=== PATIENT | female | born 1950 | race Hispanic/Latino ===

== ENCOUNTER 2017-03-14 20:40 | Inpatient (IN) | payer MEDICARE ==
[~2017-03-14] VITALS: Ht 154.9 cm; Wt 59.0 kg
[~2017-03-14 20:40] MED LIST: DEXILANT60 MG PO; FELBAMATE600 MG PO; FORTEO2.4 ML SC; FORTEO2.4 ML SQ; K DUR10 MEQ PO; KEPPRA XR500 MG PO; LEVETIRACETAM500 MG PO; LORAZEPAM1 MG PO; OMEPRAZOLE40 MG PO; PENICILLIN PO; POTASSIUM CHLO10 ME1 PO; PREDNISONE10 MG PO; PRISTIQ ER50 MG PO; SUCRALFATE1 GM PO; TOPIRAMATE100 MG PO; VITAMIN D250000 UNIT PO
[2017-03-14 22:27] LABS: CLARITY,URINE SL CLOUDY (CLEAR); COLOR,URINE YELLOW (YELLOW)
[2017-03-14 22:28] LABS: BILIRUBIN,URINE NEGATIVE (NEGATIVE); KETONES,URINE NEGATIVE (NEGATIVE); LEUKOCYTE ESTERASE ,URINE TRACE (NEGATIVE); NITRITE,URINE NEGATIVE (NEGATIVE); PROTEIN,URINE DIPSTICK NEGATIVE (NEGATIVE); URINE UROBILINOGEN 0.2 mg/dL (0.2 - 1)
[2017-03-14 22:28] LABS: BASOPHILS # (AUTO) 0.1 (0.0-0.1); BASOPHILS % 0.8 % (0.0-1.0); EOSINOPHILS # (AUTO) 0.1 (0.0-0.4); EOSINOPHILS % 1.4 % (0.0-6.0); HEMATOCRIT 43.9 % (34.2-44.1); HEMOGLOBIN 14.6 g/dL (12.0-16.0); LYMPHOCYTES # (AUTO) 2.6 (1.0-3.2); LYMPHOCYTES % 41.5 % (18.0-39.1); MEAN CORPUSCULAR HEMOGLOBIN 33.6 pg (28-32); MEAN CORPUSCULAR HGB CONC 33.3 g/dL (31-35); MEAN CORPUSCULAR VOLUME 101.2 fL (81-99); MONOCYTES # (AUTO) 0.7 (0.2-0.8); MONOCYTES % 10.7 % (4.4-11.3); NEUTROPHILS # (AUTO) 2.9 (2.1-6.9); NEUTROPHILS % 45.3 % (38.7-80.0); PLATELET COUNT 211 x10e3/uL (140-360); RED BLOOD COUNT 4.34 x10e6/uL (3.6-5.1); RED CELL DISTRIBUTION WIDTH 12.8 % (11.7-14.4)
[2017-03-14 22:40] LABS: EPITHELIAL CELLS,URINE MODERATE /LPF; TRANSITIONAL EPI CELLS,URINE MODERATE; WBC,URINE (MAN) 0-5 /HPF (0-5)
[2017-03-14 22:44] LABS: ALANINE AMINOTRANSFERASE 21 IU/L (0-55); ALBUMIN 4.4 g/dL (3.5-5.0); ALBUMIN/GLOBULIN RATIO 1.3 (0.8-2.0); ALKALINE PHOSPHATASE 102 IU/L (40-150); ANION GAP 15.2 mmol/L (8-16); BLOOD UREA NITROGEN 10 mg/dL (7-26); BUN/CREATININE RATIO 13 (6-25); CALCIUM 9.5 mg/dL (8.4-10.2); CARBON DIOXIDE 24 mmol/L (22-29); CHLORIDE 106 mmol/L (98-107); CREATININE, SERUM 0.77 mg/dL (0.57-1.11); EST GLOMERULAR FILTRATION RATE > 60 ML/MIN (60-); GLUCOSE 110 mg/dL (74-118); POTASSIUM 4.2 mmol/L (3.5-5.1); SODIUM 141 mmol/L (136-145)
[2017-03-14] MEDS ORDERED: ACETAMINOPHEN 325 MG TAB PO PRN (23:45)
[2017-03-14] MEDS ORDERED: MEROPENEM 1GM 100 ML IV SCH (23:45)
[2017-03-14] MEDS ORDERED: ONDANSETRON HCL INJ 2 MG/ML VIAL IV PRN (23:45)
[2017-03-15] VITALS (9 sets, daily range): BP systolic 100–143; BP diastolic 58–83
[2017-03-15] MEDS ORDERED: PRISTIQ ER50 MG PO (00:28)
[2017-03-15] MEDS: SODIUM CHLORIDE 0.9% 1000ML 1,000 ML IV SCH ×3 (01:39→17:00)
[2017-03-15] MEDS ORDERED: MEROPENEM 1 GM VIAL ONE (01:52)
[2017-03-15] MEDS: MEROPENEM 1 GM VIAL IV SCH ×3 (06:19→22:26)
[2017-03-15 07:31] LABS: BASOPHILS % 0.5 % (0.0-1.0); EOSINOPHILS # (AUTO) 0.1 (0.0-0.4); EOSINOPHILS % 2.9 % (0.0-6.0); HEMATOCRIT 35.3 % (34.2-44.1); HEMOGLOBIN 11.7 g/dL (12.0-16.0); LYMPHOCYTES % 47.3 % (18.0-39.1); MEAN CORPUSCULAR HEMOGLOBIN 33.5 pg (28-32); MEAN CORPUSCULAR HGB CONC 33.1 g/dL (31-35); MEAN CORPUSCULAR VOLUME 101.1 fL (81-99); MONOCYTES # (AUTO) 0.5 (0.2-0.8); MONOCYTES % 11.1 % (4.4-11.3); NEUTROPHILS # (AUTO) 1.6 (2.1-6.9); PLATELET COUNT 178 x10e3/uL (140-360); RED BLOOD COUNT 3.49 x10e6/uL (3.6-5.1)
[2017-03-15 07:47] LABS: ALANINE AMINOTRANSFERASE 16 IU/L (0-55); ALBUMIN 3.1 g/dL (3.5-5.0); ALBUMIN/GLOBULIN RATIO 1.3 (0.8-2.0); ALKALINE PHOSPHATASE 71 IU/L (40-150); ANION GAP 11.9 mmol/L (8-16); BLOOD UREA NITROGEN 8 mg/dL (7-26); BUN/CREATININE RATIO 13 (6-25); CALCIUM 8.2 mg/dL (8.4-10.2); CARBON DIOXIDE 24 mmol/L (22-29); CHLORIDE 111 mmol/L (98-107); CREATININE, SERUM 0.64 mg/dL (0.57-1.11); EST GLOMERULAR FILTRATION RATE > 60 ML/MIN (60-); GLUCOSE 84 mg/dL (74-118); POTASSIUM 3.9 mmol/L (3.5-5.1); SODIUM 143 mmol/L (136-145)
[2017-03-15] MEDS: FELBAMATE 600 MG PO SCH (17:00)
[2017-03-15] MEDS ORDERED: LORAZEPAM 1 MG TAB PO PRN (17:00)
[2017-03-15] MEDS: FAMOTIDINE 20 MG TAB PO SCH (17:45)
--- NOTE | 2017-03-15 19:31 | History and Physical ---
PRIMARY CARE PROVIDER: Dr. Bhavya Kaiser. CHIEF COMPLAINT: Multidrug resistant UTI. HISTORY OF PRESENT ILLNESS: Ms. Arreola is a 66-year-old lady who was sent from her PCP office with multidrug resistant UTI based on cultures that were done in his office. The patient does have a history of recurrent UTIs and has been under the care of Dr. Galicia and Dr. Huerta. She is admitted now electively to start IV antibiotics for her multidrug resistant UTI that has failed outpatient therapy with p.o. meds. REVIEW OF SYSTEMS: Denies fever, chills or weight loss. Denies sinus congestion or sore throat. Denies chest pain or palpitation. She denies shortness of breath, wheezing or cough. She denies abdominal pain, nausea, vomiting or melena. She does have some dysuria. Denies flank pain. She denies rash or pruritus. Denies bleeding or bruising. She denies headache, vertigo or loss of consciousness. She denies depression, agitation, homicidal or suicidal ideation. PAST MEDICAL HISTORY: Significant for long-standing idiopathic seizure disorder since childhood. She is on Keppra and Felbamate for seizures. She is on Pristiq ER for depression and lorazepam as needed for anxiety. She does have a history of cholecystectomy many years ago and she has had a left hip open reduction and internal fixation for hip fracture about 5 years ago and she has had a ventral hernia repair. ALLERGIES: SHE HAS A STATED ALLERGY TO TRAZODONE, ACYCLOVIR, IODINE, SULFA DRUGS AND CEPHALOSPORINS. FAMILY HISTORY: Unremarkable. SOCIAL HISTORY: The patient is . Speaks only Maltese. She does not smoke, drink or use illegal drugs. She is generally independently functioning. PHYSICAL EXAM: PSYCHIATRIC: She is alert and oriented times 3 with normal mood and affect. CONSTITUTIONAL: She has a normal body habitus. Is in no acute distress. VITAL SIGNS: Blood pressure 112/61. Pulse 74 and regular. Respiratory rate 16. O2 sat 99% on room air. Temperature 96.6. HEENT: Head is atraumatic and her eyes are anicteric with clear conjunctivae. Ears and nares are without erythema or discharge. Oropharynx is clear. NECK: Is supple. No mass or thyromegaly. LYMPHATIC SYSTEM: She has no palpable cervical, axillary or inguinal adenopathy. CARDIOVASCULAR: Heart has a regular rate and rhythm without murmur or extra heart sounds. She has no carotid bruit. She has no peripheral edema. Palpable dorsal pedal pulses. RESPIRATORY: Clear to auscultation and percussion with normal respiratory effort. GASTROINTESTINAL: Abdomen is soft without organomegaly, masses or tenderness. Normal bowel sounds present. CUTANEOUS: Her skin is warm and dry to touch with no rash or skin breakdown. MUSCULOSKELETAL: Joints are normal alignment without erythema or swelling. Has no calf tenderness. NEUROLOGIC: Exam is nonfocal with intact cranial nerves and no motor or sensory deficits. DIAGNOSTIC STUDIES: Her UA has 0 to 5 white cells, looks like a partially treated urine. CBC shows a white count of 4.14 with a normal differential. Hemoglobin 11.7, hematocrit 35.3 that is macrocytic. Platelet count is 178,000. Her chemistry profile shows normal electrolytes with a CO2 24. Creatinine 0.64. BUN 8. Calcium 8.2. Glucose 84. Transaminases, bilirubin and alkaline phos are normal. IMPRESSION AND PLAN 1. Recurrent multidrug resistant urinary tract infection. Patient has been started on IV meropenem empirically. Will likely need to continue this with home IV, infectious disease and urology have been consulted since they have been following the patient. Will also try a trial of estrogen vaginal cream to see if atrophic vaginitis might be the cause of her recurrent urinary tract infections. 2. Seizure disorder. Will continue her home meds. 3. For prophylaxis she will be using SCDs for DVT prophylaxis and Pepcid for GI prophylaxis. Job#: [id number]
[2017-03-15] MEDS: LEVETIRACETAM 500 MG PO SCH (22:39)
[2017-03-15] MEDS: ESTROGENS CONJUGATED VAGINAL CR 45 GM TUBE PV SCH (22:55)
--- NOTE | 2017-03-15 23:52 | Consultation ---
DATE OF CONSULTATION: REASON FOR CONSULTATION: UTI, multidrug resistant, failing medical treatment. HISTORY OF PRESENT ILLNESS: This patient who is well known to me, a 66-year-old female, who has been having recurrent UTIs. The patient has been having UTI on and off for the last 2 years. I first met her 2 years ago when she was septic with multidrug-resistant pathogen. She was treated with IV meropenem for 2 weeks, and since then, she has been having recurrent UTIs. On another occasion back in December, I had to put her back on IV meropenem with improvement. She has seen Dr. Diomedes Galicia and had extensive workup and apparently there is nothing else could be done from urological point of view. We have tried several courses of oral antibiotic as suppressive treatment including Cipro, cefazolin, and Ceftin without really good luck. She called me complaining of urgency, frequency, feeling feverish, suprapubic discomfort, minimum blood noticed after ; so, I told her to come to the hospital because I have done a recent urine culture and it was multidrug-resistant E coli. The patient came to the emergency room where she was admitted and started on meropenem. Patient is currently feeling slightly better. She said that since she started the IV antibiotic she is feeling much better. PAST MEDICAL HISTORY: She has history of seizure disorder, although we sent her to neurologist and she has been on Keppra and felbamate for seizure. She also is on Pristiq ER for depression. She is on lorazepam for anxiety. Patient has had multiple other complaints and she has seen several physicians as an outpatient. She is Sinhala speaking but her son who is very caring and he is aware of the situation. Past medical history: As above. PAST SURGICAL HISTORY: Cholecystectomy. ALLERGIES: TRAZODONE AND ACYCLOVIR. SOCIAL HISTORY: There is no smoking, drug abuse, or alcohol abuse. FAMILY HISTORY: Hypertension. REVIEW OF SYSTEMS CONSTITUTIONAL: Feeling feverish, feeling bad for a few days. Generalized aches and pains. NEURO: There is no seizure activity recently. : There is urgency, there is frequency, there is suprapubic discomfort and pain. JOINTS: She has aches and pain all over. MUSCLE: She is feeling fatigued. PULMONARY: There is no cough or shortness of breath. LABORATORY DATA: White count is 4.14, hemoglobin 11.73. Sodium 143, potassium 3.9, and creatinine 0.64. Urine test showed she had trace leukocyte esterase with moderate epithelial cells. PHYSICAL EXAMINATION GENERAL: She is currently alert, oriented, does not seem to be in acute distress. VITALS: Stable, afebrile. HEENT: She is not icteric. NECK: Supple. CHEST: Clear. HEART: S1 and S2, no murmur. ABDOMEN: Soft. Bowel sounds present. EXTREMITIES: No edema. She has some suprapubic discomfort. IMPRESSIONS 1. Cystitis with multidrug-resistant pathogen. We put her on meropenem. Await urine culture and sensitivity. Await her lab. She is already feeling better with the above antibiotic. I had a very long discussion with her son today about suppressive treatment. It seems she has failed multiple oral antibiotics. I may want to try IV meropenem once a week and see if that will keep her from being re-admitted for urinary tract infection, pyelonephritis. I have sent her to see to evaluate her for obstetrics/gynecology if we can use vaginal cream, Premarin, or something like that and she is going to see him. 2. Seizure disorder. 3. Anxiety and depression. Thank you for asking me to see this patient. Job#: [id number]
[2017-03-16] VITALS (9 sets, daily range): BP systolic 111–152; BP diastolic 59–80
[2017-03-16] MEDS: MEROPENEM 1 GM VIAL IV SCH ×3 (06:06→23:26)
[2017-03-16 07:04] LABS: BASOPHILS % 1.2 % (0.0-1.0); EOSINOPHILS # (AUTO) 0.1 (0.0-0.4); EOSINOPHILS % 3.9 % (0.0-6.0); HEMATOCRIT 35.2 % (34.2-44.1); HEMOGLOBIN 11.4 g/dL (12.0-16.0); LYMPHOCYTES # (AUTO) 1.5 (1.0-3.2); MEAN CORPUSCULAR HEMOGLOBIN 33.1 pg (28-32); MEAN CORPUSCULAR HGB CONC 32.4 g/dL (31-35); MEAN CORPUSCULAR VOLUME 102.3 fL (81-99); MONOCYTES # (AUTO) 0.5 (0.2-0.8); MONOCYTES % 13.4 % (4.4-11.3); NEUTROPHILS # (AUTO) 1.3 (2.1-6.9); NEUTROPHILS % 38.2 % (38.7-80.0); PLATELET COUNT 161 x10e3/uL (140-360); RED BLOOD COUNT 3.44 x10e6/uL (3.6-5.1)
[2017-03-16 07:27] LABS: % IRON SATURATION 55 % (15-50); BLOOD UREA NITROGEN 10 mg/dL (7-26); BUN/CREATININE RATIO 15 (6-25); CALCIUM 7.9 mg/dL (8.4-10.2); CARBON DIOXIDE 23 mmol/L (22-29); CHLORIDE 115 mmol/L (98-107); CREATININE, SERUM 0.66 mg/dL (0.57-1.11); EST GLOMERULAR FILTRATION RATE > 60 ML/MIN (60-); GLUCOSE 82 mg/dL (74-118); IRON 119 ug/dL (50-170); MAGNESIUM 1.9 MG/DL (1.3-2.1); SODIUM 142 mmol/L (136-145); TOTAL IRON BINDING CAPACITY 216 ug/dL (261-478); TRANSFERRIN 154 mg/dL (180-382)
[2017-03-16 07:48] LABS: FREE T4 (FREE THYROXINE) 0.89 ng/dL (0.8-1.8); THYROID STIMULATING HORMONE 0.813 uIU/mL (0.350-4.940)
[2017-03-16] MEDS: FAMOTIDINE 20 MG TAB PO SCH ×2 (08:30→16:30)
[2017-03-16] MEDS: FELBAMATE 600 MG PO SCH ×2 (09:00→17:00)
[2017-03-16] MEDS: DESVENLAFAXINE SUCCINATE 50 MG TAB.SR.24H PO SCH (09:00)
[2017-03-16] MEDS: LEVETIRACETAM 500 MG PO SCH ×4 (09:00→21:00)
--- NOTE | 2017-03-16 12:52 | Diagnostic Imaging Report ---
PROCEDURE: CT ABDOMEN AND PELVIS WITHOUT CONTRAST TECHNIQUE: The abdomen and pelvis were scanned utilizing a multidetector helical scanner from the diaphragm to the lesser trochanter without administration of contrast medium No IV contrast was administered per protocol/per physician request). Coronal and sagittal multiplanar reformations were obtained. COMPARISON: [facility], CT, CT ABDOMEN/PELVIS , 10/14/2016, 14:50. INDICATIONS: CALCULUS OF KIDNEY FINDINGS: ABSENCE OF INTRAVENOUS CONTRAST DECREASES SENSITIVITY FOR DETECTION OF FOCAL LESIONS AND VASCULAR PATHOLOGY. LOWER THORAX: Normal. HEPATOBILIARY: Redemonstration of ill-defined low attenuation in the posterior aspect of segment 7 of the liver with associated atrophy, unchanged. ons. No biliary ductal dilatation. Status post cholecystectomy. Mild dilatation of the normal duct likely reflecting reserve or fracture. SPLEEN: No splenomegaly. PANCREAS: No focal masses or ductal dilatation. ADRENALS: No adrenal nodules. KIDNEYS/URETERS: No hydronephrosis, stones, or solid mass lesions. PELVIC ORGANS/BLADDER: Multiple phleboliths scattered throughout the pelvis. PERITONEUM / RETROPERITONEUM: No free air or fluid. LYMPH NODES: No lymphadenopathy. VESSELS: Mild atherosclerotic ossifications without aneurysmal dilatation. GI TRACT: No distention or wall thickening. A few scattered colonic diverticula without diverticulitis. BONES AND SOFT TISSUES: Loss of height of the L1 vertebral body with superior endplate Schmorl node, unchanged. Generalized osteopenia. Tiny fat containing umbilical hernia. IMPRESSION: 1. No evidence of urolithiasis. Ryne Ambriz M.D. Dictated by: Ryne Ambriz M.D. on 03/16/2017 at 13:01 Electronically approved by: Ryne Ambriz M.D. on 03/16/2017 at 13:01
[2017-03-16] MEDS: ESTROGENS CONJUGATED VAGINAL CR 45 GM TUBE PV SCH (23:26)
[2017-03-17] VITALS: BP 138/66
[2017-03-17 04:00] VITALS: BP 151/66
[2017-03-17] MEDS: MEROPENEM 1 GM VIAL IV SCH (06:21)
[2017-03-17 07:07] LABS: EOSINOPHILS # (AUTO) 0.1 (0.0-0.4); EOSINOPHILS % 3.2 % (0.0-6.0); HEMATOCRIT 37.4 % (34.2-44.1); HEMOGLOBIN 12.2 g/dL (12.0-16.0); LYMPHOCYTES % 49.4 % (18.0-39.1); MEAN CORPUSCULAR HGB CONC 32.6 g/dL (31-35); MEAN CORPUSCULAR VOLUME 101.1 fL (81-99); MONOCYTES # (AUTO) 0.5 (0.2-0.8); MONOCYTES % 12.2 % (4.4-11.3); NEUTROPHILS # (AUTO) 1.4 (2.1-6.9); PLATELET COUNT 186 x10e3/uL (140-360); RED CELL DISTRIBUTION WIDTH 12.9 % (11.7-14.4)
[2017-03-17 07:27] LABS: ANION GAP 10.2 mmol/L (8-16); BLOOD UREA NITROGEN 11 mg/dL (7-26); BUN/CREATININE RATIO 16 (6-25); CALCIUM 8.7 mg/dL (8.4-10.2); CARBON DIOXIDE 23 mmol/L (22-29); CHLORIDE 112 mmol/L (98-107); CREATININE, SERUM 0.69 mg/dL (0.57-1.11); EST GLOMERULAR FILTRATION RATE > 60 ML/MIN (60-); GLUCOSE 82 mg/dL (74-118); POTASSIUM 4.2 mmol/L (3.5-5.1); SODIUM 141 mmol/L (136-145)
[2017-03-17 07:51] VITALS: BP 118/60
[2017-03-17] MEDS: FAMOTIDINE 20 MG TAB PO SCH (08:30)
[2017-03-17] MEDS: LEVETIRACETAM 500 MG PO SCH (09:00)
[2017-03-17] MEDS: FELBAMATE 600 MG PO SCH (09:00)
[2017-03-17] MEDS: DESVENLAFAXINE SUCCINATE 50 MG TAB.SR.24H PO SCH (09:00)
[2017-03-17 11:19] VITALS: BP 119/70
[2017-03-17] MEDS ORDERED: KEFLEX500 MG PO (11:47)
--- NOTE | 2017-03-17 19:18 | Discharge Summary ---
ADMISSION DIAGNOSES 1. Recurrent drug resistant urinary tract infection. 2. Seizure disorder. 3. Anxiety. 4. Depression. DISCHARGE DIAGNOSES 1. Recurrent drug resistant urinary tract infection. 2. Seizure disorder. 3. Anxiety. 4. Depression. HISTORY: The patient has a history of longstanding idiopathic seizure disorder on Keppra and felbamate for seizures, depression, anxiety. PAST SURGICAL HISTORY: Cholecystectomy, left hip ORIF and ventral hernia repair. HOSPITAL COURSE: A 66-year-old female was sent from her PCP with multidrug resistant UTI based on cultures done in the office. The patient has a history of recurrent UTIs and is under the care of Dr. Galicia and Dr. Huerta. She is admitted electively to start IV antibiotics as she has had failed attempt at p.o. meds outpatient. Upon admission, the patient was started on IV Merrem. ID and urology have been consulted. The patient was also started on Estrogen vaginal cream to see if the atrophic vaginitis might be the cause of her recurrent UTIs. The patient was started on home medicines for depression, anxiety and seizures. On admission, CT of the abdomen was done which showed no evidence of urolithiasis. Urine culture was done which was negative. Sodium on discharge was 141, potassium 4.2, creatinine 0.69, WBC of 4.01, hemoglobin 12.2, hematocrit 37.4. Per infectious disease request, the patient was sent home on Keflex on Monday, Monday and Monday x2 weeks and will follow up with them for 2 weeks. The patient has an allergy to cephalosporins and sulfa. Infectious disease aware, which is why he prescribed those antibiotics Monday, Monday and Monday. The patient will follow up in 2 weeks with ID and primary care if needed. On discharge, the patient denies dysuria, hematuria or flank pain. Dictated by: Criss Woods NP JAYDEN MOORE MD Job#: [id number]
== END 2017-03-17 14:08 | disposition home or self-care (01) | DRG 690 ==
LOC: ER 20:40 → ERHOLD 23:53 → MED/SURG3 03-15 00:34
PROVIDERS: ADMIT Internal Medicine; ATTEND Internal Medicine
DX: N30.90 Cystitis, unspecified without hematuria (principal); I10 Essential (primary) hypertension; Z16.24 Resistance to multiple antibiotics; G40.909 Epilepsy, unspecified, not intractable, without status epilepticus; F41.9 Anxiety disorder, unspecified; F32.9 Major depressive disorder, single episode, unspecified; N95.2 Postmenopausal atrophic vaginitis; Z88.2 Allergy status to sulfonamides; B96.20 Unspecified Escherichia coli [E. coli] as the cause of diseases classified elsewhere; M81.0 Age-related osteoporosis without current pathological fracture; D64.9 Anemia, unspecified
CPT/HCPCS: 36415; 74176; 80048; 80053; 81001; 82607; 82746; 83540; 83735; 83880; 84439; 84443; 84466; 85025; 87086; 99283; J2185; J7030

== ENCOUNTER 2017-08-14 20:21 | Observation (INO) | payer MEDICARE ==
[~2017-08-14] VITALS: Ht 154.9 cm; Wt 59.0 kg
[~2017-08-14 20:21] MED LIST changes: +KEFLEX500 MG PO
[2017-08-14] MEDS ORDERED: ACETAMINOPHEN 325 MG TAB PO ONE (20:45)
[2017-08-14] MEDS ORDERED: DIATRIZOATE MEGL/DIATRIZOA SOD 30 ML BTL PO ONE (20:48)
[2017-08-14 21:06] LABS: BASOPHILS % 0.6 % (0.0-1.0); EOSINOPHILS % 0.2 % (0.0-6.0); HEMATOCRIT 45.9 % (34.2-44.1); HEMOGLOBIN 15.7 g/dL (12.0-16.0); LYMPHOCYTES # (AUTO) 1.9 (1.0-3.2); LYMPHOCYTES % 29.7 % (18.0-39.1); MEAN CORPUSCULAR HGB CONC 34.2 g/dL (31-35); MEAN CORPUSCULAR VOLUME 99.4 fL (81-99); MONOCYTES # (AUTO) 0.6 (0.2-0.8); MONOCYTES % 9.7 % (4.4-11.3); NEUTROPHILS # (AUTO) 3.8 (2.1-6.9); NEUTROPHILS % 59.5 % (38.7-80.0); PLATELET COUNT 253 x10e3/uL (140-360); RED BLOOD COUNT 4.62 x10e6/uL (3.6-5.1); RED CELL DISTRIBUTION WIDTH 12.7 % (11.7-14.4)
[2017-08-14 21:23] LABS: ALANINE AMINOTRANSFERASE 21 IU/L (0-55); ALBUMIN 4.8 g/dL (3.5-5.0); ALBUMIN/GLOBULIN RATIO 1.3 (0.8-2.0); ALKALINE PHOSPHATASE 103 IU/L (40-150); AMYLASE 217 U/L (25-125); ANION GAP 16.2 mmol/L (8-16); BLOOD UREA NITROGEN 11 mg/dL (7-26); BUN/CREATININE RATIO 13 (6-25); CARBON DIOXIDE 21 mmol/L (22-29); CHLORIDE 106 mmol/L (98-107); CREATINE KINASE 35 IU/L (29-168); CREATININE, SERUM 0.85 mg/dL (0.57-1.11); EST GLOMERULAR FILTRATION RATE > 60 ML/MIN (60-); GLUCOSE 132 mg/dL (74-118); LIPASE 242 U/L (8-78); POTASSIUM 4.2 mmol/L (3.5-5.1); SODIUM 139 mmol/L (136-145)
[2017-08-14 22:13] LABS: CLARITY,URINE CLEAR (CLEAR); COLOR,URINE YELLOW (YELLOW); LEUKOCYTE ESTERASE ,URINE NEGATIVE (NEGATIVE); NITRITE,URINE NEGATIVE (NEGATIVE)
[2017-08-14 22:14] LABS: BILIRUBIN,URINE NEGATIVE (NEGATIVE); KETONES,URINE NEGATIVE (NEGATIVE); PROTEIN,URINE DIPSTICK 1+ (NEGATIVE); URINE UROBILINOGEN 0.2 mg/dL (0.2 - 1)
[2017-08-14 22:20] LABS: EPITHELIAL CELLS,URINE MODERATE /LPF; MUCUS,URINE MODERATE (RARE); WBC,URINE (MAN) 0-5 /HPF (0-5)
[2017-08-15] VITALS (8 sets, daily range): BP systolic 126–162; BP diastolic 58–78
--- NOTE | 2017-08-15 00:06 | Diagnostic Imaging Report ---
EXAM: CT Abdomen and Pelvis WITHOUT contrast INDICATION: Abdominal pain COMPARISON: None. TECHNIQUE: Abdomen and pelvis were scanned utilizing a multidetector helical scanner from the lung base to the pubic symphysis without administration of IV contrast. Absence of intravenous contrast decreases sensitivity for detection of focal lesions and vascular pathology. Coronal and sagittal reformations were obtained. Routine protocol was performed. IV CONTRAST: None. ORAL CONTRAST: Gastrografin RADIATION DOSE: Total DLP: 268.54 mGy*cm Estimated effective dose: (DLP x 0.015 x size factor) mSv COMPLICATIONS: None FINDINGS: LINES and TUBES: None. LOWER THORAX: Unremarkable HEPATOBILIARY: No focal hepatic lesions. No biliary ductal dilation. GALLBLADDER: There are cholecystectomy clips. SPLEEN: No splenomegaly. PANCREAS: No focal masses or ductal dilatation. ADRENALS: No adrenal nodules KIDNEYS/URETERS: No hydronephrosis. No cystic or solid mass lesions. No stones. GI TRACT: No abnormal distention, wall thickening, or evidence of bowel obstruction. Appendix is normal. PELVIC ORGANS/BLADDER: Unremarkable. LYMPH NODES: No lymphadenopathy. VESSELS: There is mild atherosclerotic disease in the aorta and major arterial branches. PERITONEUM / RETROPERITONEUM: No free air or fluid. Incidentally noted, area of peritoneal calcification in the left lower quadrant compatible with prior omental fat necrosis on series 2, image 55 and in the right hemipelvis on series 2, image 61. BONES: There are degenerative changes in the lumbar spine. Posttraumatic changes of the left femur related to prior ORIF SOFT TISSUES: Unremarkable. IMPRESSION: 1. No acute intra-abdominal or pelvic abnormality. 2. 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 Cliff Ratliff M.D. on 08/15/2017 12:02 AM
--- NOTE | 2017-08-15 00:06 | Diagnostic Imaging Report ---
EXAMINATION: CHEST SINGLE (PORTABLE) INDICATION: Chest discomfort. COMPARISON: April 20, 2016 FINDINGS: TUBES and LINES: None. LUNGS: Lungs are not well inflated. There are bibasilar atelectasis. There is no evidence of pneumonia or pulmonary edema. PLEURA: No pleural effusion or pneumothorax. HEART AND MEDIASTINUM: The cardiomediastinal silhouette is unremarkable. BONES AND SOFT TISSUES: No acute osseous lesion. Soft tissues are unremarkable. UPPER ABDOMEN: No free air under the diaphragm. There are cholecystectomy clips. IMPRESSION: No acute thoracic abnormality. Signed by: Dr. Cliff Ratliff M.D. on 08/15/2017 12:03 AM
[2017-08-15] MEDS ORDERED: ONDANSETRON HCL INJ 2 MG/ML VIAL IV PRN (00:15)
[2017-08-15] MEDS ORDERED: HYDROMORPHONE 1MG/1ML INJ IV PRN (00:15)
[2017-08-15] MEDS ORDERED: SODIUM CHLORIDE 0.9% 1000ML 1,000 ML ONE (00:28)
[2017-08-15] MEDS: SODIUM CHLORIDE 0.9% 1000ML 1,000 ML IV SCH ×4 (00:36→20:29)
[2017-08-15] MEDS: LORAZEPAM 1 MG TAB PO PRN ×2 (02:32→22:13)
[2017-08-15 06:31] LABS: BASOPHILS % 0.7 % (0.0-1.0); EOSINOPHILS # (AUTO) 0.1 (0.0-0.4); EOSINOPHILS % 1.3 % (0.0-6.0); HEMATOCRIT 36.4 % (34.2-44.1); HEMOGLOBIN 12.5 g/dL (12.0-16.0); LYMPHOCYTES # (AUTO) 1.8 (1.0-3.2); LYMPHOCYTES % 40.9 % (18.0-39.1); MEAN CORPUSCULAR HEMOGLOBIN 34.3 pg (28-32); MEAN CORPUSCULAR HGB CONC 34.3 g/dL (31-35); MONOCYTES # (AUTO) 0.5 (0.2-0.8); MONOCYTES % 10.3 % (4.4-11.3); NEUTROPHILS # (AUTO) 2.1 (2.1-6.9); NEUTROPHILS % 46.4 % (38.7-80.0); PLATELET COUNT 194 x10e3/uL (140-360); RED BLOOD COUNT 3.64 x10e6/uL (3.6-5.1); RED CELL DISTRIBUTION WIDTH 12.7 % (11.7-14.4)
[2017-08-15 06:59] LABS: ANION GAP 9.8 mmol/L (8-16); BLOOD UREA NITROGEN 7 mg/dL (7-26); BUN/CREATININE RATIO 11 (6-25); CALCIUM 8.3 mg/dL (8.4-10.2); CARBON DIOXIDE 23 mmol/L (22-29); CHLORIDE 110 mmol/L (98-107); CHOL/HDL RATIO 2.3 (3.0-3.6); CHOLESTEROL 175 MD/DL (0-199); CREATININE, SERUM 0.63 mg/dL (0.57-1.11); EST GLOMERULAR FILTRATION RATE > 60 ML/MIN (60-); GLUCOSE 96 mg/dL (74-118); HDL CHOLESTEROL 75 MG/DL (40-60); LDL CHOLESTEROL 90 MG/DL (60-130); LIPASE 382 U/L (8-78); MAGNESIUM 2.1 MG/DL (1.3-2.1); POTASSIUM 3.8 mmol/L (3.5-5.1); SODIUM 139 mmol/L (136-145); TRIGLYCERIDES 52 MG/DL (0-149)
[2017-08-15] MEDS ORDERED: ACETAMINOPHEN 325 MG TAB PO PRN (07:15)
[2017-08-15] MEDS ORDERED: ALBUTEROL/IPRATROPIUM 3 ML NEB NEB PRN (07:15)
[2017-08-15] MEDS ORDERED: HYDRALAZINE HCL 20 MG/ML VIAL IV PRN (07:15)
[2017-08-15 07:21] LABS: FREE T4 (FREE THYROXINE) 0.87 ng/dL (0.9-1.8)
[2017-08-15] MEDS ORDERED: LEVETIRACETAM 500 MG PO SCH (09:00)
[2017-08-15] MEDS ORDERED: FELBAMATE 600 MG PO SCH (09:00)
[2017-08-15] MEDS: FELBAMATE 600 MG PO SCH ×2 (09:36→17:10)
[2017-08-15] MEDS: DESVENLAFAXINE SUCCINATE 50 MG TAB.SR.24H PO SCH (09:36)
[2017-08-15] MEDS: LEVETIRACETAM 500 MG TAB PO SCH ×4 (09:36→20:29)
[2017-08-15] MEDS: FAMOTIDINE 20 MG TAB PO SCH ×2 (09:36→16:05)
--- NOTE | 2017-08-15 09:59 | Diagnostic Imaging Report ---
EXAMINATION: Head CT HISTORY: Dizziness, pancreatitis COMPARISON: None. TECHNIQUE: Multidetector axial images were obtained without contrast from the foramen magnum to the vertex . The images were reconstructed using brain and bone algorithms. Thin section brain images were reformatted into coronal and sagittal planes. Intravenous contrast: None. Motion/streaking artifact limits the evaluation of the skull base and posterior cranial fossa. FINDINGS: Parenchyma: 1. No abnormal densities. 2. No mass or hemorrhage. No CT evidence of acute territorial vascular insult. Extra-axial spaces:No abnormal density. No extra-axial fluid collections Brain volume: Normal for age. Ventricles: No hydrocephalus or displacement. Arteries: No density suggestive of thrombus. Dural sinuses: No abnormal density. Extra-axial spaces: No abnormal density. Foramen magnum: No mass, Chiari malformation, or basilar invagination. Sella: No obvious mass. Paranasal/mastoid sinuses: Imaged portions unremarkable. Skull/Scalp: No lytic or blastic lesions. No fractures. IMPRESSION: No intracranial abnormalities. Signed by: Dr. Nury Gonzalez M.D. on 08/15/2017 9:55 AM
--- NOTE | 2017-08-15 10:05 | Diagnostic Imaging Report ---
PROCEDURE:ABDOMINAL ULTRASOUND COMPARISON:CT abdomen and pelvis without contrast 08/14/2017. INDICATIONS:Pancreatitis FINDINGS: Liver: 14.3 cm in length in the right midclavicular line. Normal hepatic parenchymal echogenicity. No focal mass. Main portal vein: 1 cm in caliber. Hepatopedal flow. Gallbladder: Surgically removed. Common Bile Duct: 1.5 cm in caliber, likely related to reservoir effect in the setting of prior cholecystectomy. No echogenic filling defect. Right kidney: 9.3 cm in length. No solid or cystic mass, echogenic calculi, or hydronephrosis. Normal renal cortical echogenicity. Left kidney: 8.6 cm in length. No solid or cystic mass, echogenic calculi, or hydronephrosis. Normal renal cortical echogenicity. Spleen: Poorly visualized. Pancreas: The visualized portions of the pancreas are normal. Inferior vena cava: Patent. Aorta: Non-aneurysmal. Ascites: None. CONCLUSION: No acute sonographic abnormality. Suboptimal visualization of the pancreas; however, the pancreas is normal in appearance on comparison CT abdomen and pelvis 08/14/2017. Status post cholecystectomy with associated dilatation of the common bile duct. Dictated by: Jr Skaggs M.D. on 08/15/2017 at 10:08 Electronically approved by: Jr Skaggs M.D. on 08/15/2017 at 10:08
--- NOTE | 2017-08-15 16:34 | Consultation ---
DATE OF CONSULTATION: August 15, 2017 REASON FOR CONSULTATION: Pancreatitis. HISTORY OF PRESENT ILLNESS: This patient is well known to me. The patient is a 67-year-old female with history of recurrent UTI, history of dizziness, history of abdominal pain on and off, history of fibromyalgia. The patient comes in with abdominal pain to the emergency room. I did talk with the ER physician yesterday. I recommended a full workup, especially in this patient who has history of UTI before. The patient was found to have pancreatitis. The patient is being admitted, and infectious disease was consulted. Patient is currently lying in bed comfortably. She said when she first came she was having severe abdominal pain but since she came here she is feeling better. PAST MEDICAL HISTORY: UTI, anxiety, depression, idiopathic seizure disorder, fibromyalgia. PAST SURGICAL HISTORY: Cholecystectomy, left ORIF. ALLERGIES: NKA. SOCIAL HISTORY: There is no smoking, drug abuse or alcohol abuse. FAMILY HISTORY: Otherwise unremarkable. REVIEW OF SYSTEMS HEENT: There is no headache, visual changes or hearing changes. GI: There is some nausea, no vomiting. : Negative. SKIN: There is no rash. JOINTS: Negative. LABORATORY DATA: Reviewed. Chart reviewed. White count 4.47, hemoglobin 12, sodium 139, potassium 3.8. I met with the and discussed with the . I will discuss with the patient. IMPRESSION: Pancreatitis. Continue with IV fluids. Continues with nausea. There is no need for control. Will follow with you. Job#: [id number]
[2017-08-16] VITALS: BP 153/66
[2017-08-16 03:05] LABS: BASOPHILS # (AUTO) 0.1 (0.0-0.1); BASOPHILS % 1.2 % (0.0-1.0); EOSINOPHILS # (AUTO) 0.1 (0.0-0.4); EOSINOPHILS % 2.2 % (0.0-6.0); HEMATOCRIT 35.9 % (34.2-44.1); HEMOGLOBIN 12.2 g/dL (12.0-16.0); LYMPHOCYTES # (AUTO) 1.7 (1.0-3.2); LYMPHOCYTES % 40.7 % (18.0-39.1); MEAN CORPUSCULAR HEMOGLOBIN 34.4 pg (28-32); MEAN CORPUSCULAR VOLUME 101.1 fL (81-99); MONOCYTES # (AUTO) 0.4 (0.2-0.8); NEUTROPHILS # (AUTO) 1.9 (2.1-6.9); NEUTROPHILS % 45.7 % (38.7-80.0); PLATELET COUNT 179 x10e3/uL (140-360); RED BLOOD COUNT 3.55 x10e6/uL (3.6-5.1); RED CELL DISTRIBUTION WIDTH 12.6 % (11.7-14.4)
[2017-08-16] MEDS: SODIUM CHLORIDE 0.9% 1000ML 1,000 ML IV SCH ×2 (03:12→08:50)
[2017-08-16 03:33] LABS: ALANINE AMINOTRANSFERASE 16 IU/L (0-55); ALBUMIN 3.5 g/dL (3.5-5.0); ALBUMIN/GLOBULIN RATIO 1.5 (0.8-2.0); ALKALINE PHOSPHATASE 68 IU/L (40-150); AMYLASE 69 U/L (25-125); ANION GAP 11.8 mmol/L (8-16); BLOOD UREA NITROGEN 5 mg/dL (7-26); BUN/CREATININE RATIO 8 (6-25); CALCIUM 8.2 mg/dL (8.4-10.2); CARBON DIOXIDE 20 mmol/L (22-29); CHLORIDE 114 mmol/L (98-107); CREATININE, SERUM 0.59 mg/dL (0.57-1.11); EST GLOMERULAR FILTRATION RATE > 60 ML/MIN (60-); GLUCOSE 72 mg/dL (74-118); POTASSIUM 3.8 mmol/L (3.5-5.1); SODIUM 142 mmol/L (136-145)
[2017-08-16 04:22] VITALS: BP 127/61
[2017-08-16 08:00] VITALS: BP 126/60
[2017-08-16] MEDS: FAMOTIDINE 20 MG TAB PO SCH (08:50)
[2017-08-16] MEDS: DESVENLAFAXINE SUCCINATE 50 MG TAB.SR.24H PO SCH (08:50)
[2017-08-16] MEDS: LEVETIRACETAM 500 MG TAB PO SCH ×2 (08:50→12:31)
[2017-08-16] MEDS: FELBAMATE 600 MG PO SCH (08:54)
[2017-08-16] MEDS ORDERED: LORAZEPAM1 MG PO (12:19)
--- NOTE | 2017-08-17 00:58 | Discharge Summary ---
ADMISSION DIAGNOSES 1. Pancreatitis. 2. Depression. 3. Anxiety. 4. History of seizures, dizziness, diarrhea, and shortness of breath. DISCHARGE DIAGNOSES 1. Pancreatitis. 2. Depression. 3. Anxiety. 4. History of seizures, dizziness, diarrhea, and shortness of breath. 5. Hypocalcemia. HISTORY: Patient has a history of idiopathic seizures since childhood, depression, anxiety, UTI, and pancreatitis. Surgical history of cholecystectomy, left hip ORIF. HOSPITAL COURSE: A 67-year-old female complains of dizziness, abdominal pain, nausea and diarrhea that began 2 days ago. The diarrhea started as soft stool but is now watery. She had chills at home and had a temp of 100 in the ER. She said she gets dizzy when she has fever, but she never took a temp at home. The nausea and abdominal pain are worse when eating. Pain and nausea improved with medications. On admission, a chest x-ray was done. It showed no acute thoracic abnormality. CT of the abdomen done showed no acute intra-abdominal or pelvic abnormality. Ultrasound of the abdomen showed no acute sonographic abnormality. On admission, her lipase was 242. Patient started on IV fluid and pain medicine as well as Zofran. Patient started on home medications for all other diagnoses. Due to the dizziness, I ordered a carotid Doppler which was negative as well as a CT of the brain which was negative. After just 1 day of IV fluid, her lipase is back to normal. She is tolerating p.o. with no nausea or pain. On day of discharge, WBC 4.18, hemoglobin 12.2, and hematocrit 35.9. Sodium 142, potassium 3.8, creatinine of 0.59, GFR of over 60. Patient afebrile, vital signs stable. Discharge plan discussed with patient and son and both agree to discharge. They will follow up with primary care in 1 to 2 weeks. Dictated by Criss Woods NP JAYDEN MOORE MD Job#: [id number]
== END 2017-08-16 14:17 | disposition home or self-care (01) ==
LOC: ER 20:21 → ERHOLD 08-15 00:20 → INTOOBSV 08-15 00:20 → MED/SURG 08-15 01:16
PROVIDERS: ADMIT Internal Medicine; ATTEND Internal Medicine
DX: K85.00 Idiopathic acute pancreatitis without necrosis or infection (principal); R10.13 Epigastric pain; R10.2 Pelvic and perineal pain; Z87.440 Personal history of urinary (tract) infections; G40.909 Epilepsy, unspecified, not intractable, without status epilepticus; M79.7 Fibromyalgia; R42 Dizziness and giddiness; F32.9 Major depressive disorder, single episode, unspecified; F41.9 Anxiety disorder, unspecified; R19.7 Diarrhea, unspecified; E83.51 Hypocalcemia
CPT/HCPCS: 36415 ×3; 70450; 71045; 74176; 76700; 80048; 80053 ×2; 80061; 81001; 82150 ×2; 82550; 82553; 83036; 83690 ×3; 83735 ×2; 84439; 84443; 84484; 85025 ×3; 93005; 93880; 97116 ×2; 97161; 99284; G0378 ×2; J7030 ×2

== ENCOUNTER → 2017-12-08 | Outpatient (CLI) | payer MEDICARE ==
[2017-12-08 09:18] LABS: BLOOD UREA NITROGEN 15 mg/dL (7-26); BUN/CREATININE RATIO 20 (6-25); CREATININE, SERUM 0.75 mg/dL (0.57-1.11); EST GLOMERULAR FILTRATION RATE > 60 ML/MIN (60-)
== END ==
LOC: DX 08:39
PROVIDERS: ATTEND Internal Medicine Infectious Disease
DX: N39.0 Urinary tract infection, site not specified (principal)
CPT/HCPCS: 36415; 36569; 77001; 82565; 84520

== ENCOUNTER → 2018-01-22 | Outpatient (CLI) | payer MEDICARE ==
--- NOTE | 2018-01-22 14:23 | Diagnostic Imaging Report ---
EXAMINATION: CT scan of the chest without contrast. TECHNIQUE: Spiral CT images of the chest were performed from the lung apices to the level of the adrenal glands. No intravenous contrast was administered per referring physician request. Coronal and sagittal reformatted images were obtained. COMPARISON: 08/14/2017 CLINICAL HISTORY:Chest pain and shortness of breath x20 days DISCUSSION: ABSENCE OF INTRAVENOUS CONTRAST DECREASES SENSITIVITY FOR DETECTION OF FOCAL LESIONS AND VASCULAR PATHOLOGY. LINES/TUBES: None. LUNGS AND AIRWAYS: There are scattered foci of peripherally predominant juxtapleural reticulation, groundglass opacities and architectural distortion without a definite apical or basal predominance. Mild bilateral upper lobe and medial segment lower lobe traction bronchiectasis. No honeycombing. No mass lesion or airspace consolidation. Trachea, mainstem bronchi, and lobar and segmental bronchi are patent. PLEURA: No pneumothorax or pleural effusions. HEART AND MEDIASTINUM: Thyroid gland appears normal. No ectasia or aneurysmal dilatation of the thoracic aorta. Minimal atherosclerotic calcification of the left anterior descending coronary artery. Pulmonary outflow tract is of normal caliber. No pericardial effusion. No axillary, hilar, or mediastinal lymphadenopathy. LYMPH NODES: There is no mediastinal, hilar or axillary lymphadenopathy. ABDOMEN: Visualized portions of the liver, spleen, pancreas, and adrenal glands are unremarkable. Prominence of the common bile duct is likely a consequence of reservoir effect in this patient status post cholecystectomy. BONES AND SOFT TISSUES: No osseous destructive lesions. Diffuse osteopenia. Concavity of the superior endplate of L1 is likely degenerative in nature, partially visualized. IMPRESSION: Multifocal traction bronchiectasis with juxtapleural reticulation, groundglass opacities, and architectural distortion may be the sequela of prior infection. Differential diagnosis includes early interstitial lung disease (UIP or NSIP pattern). Follow-up CT scan of the chest in one year may be of benefit to assess for stability. Atherosclerotic vascular disease. Signed by: Dr. Jr Skaggs M.D. on 01/22/2018 2:20 PM
== END ==
LOC: CT 11:03
PROVIDERS: ATTEND Internal Medicine Cardiovascular Disease
DX: R07.9 Chest pain, unspecified (principal); R06.02 Shortness of breath
CPT/HCPCS: 71250

== ENCOUNTER → 2018-05-15 | Outpatient (CLI) | payer MEDICARE ==
--- NOTE | 2018-05-15 16:11 | Diagnostic Imaging Report ---
CT CHEST WITHOUT CONTRAST HISTORY: COUGH, SOB COMPARISON: CT of the chest January 22, 2018 TECHNIQUE: CT scan of the chest WITHOUT intravenous contrast, using standard protocol. The chest was scanned utilizing a multidetector helical scanner from the apex to the level of the adrenal glands. Coronal and sagittal reformats are provided. IV CONTRAST: None, which limits evaluation of the vascular structures, mediastinum and soft tissues. RADIATION DOSE: Total DLP: 454.47 mGy*cm Dose modulation, iterative reconstruction, and/or weight based adjustment of the mA/kV was utilized to reduce the radiation dose to as low as reasonably achievable. COMPLICATIONS: None FINDINGS: Lines/tubes: None. Lungs and Airways: Minimal biapical pleural-parenchymal scarring. Slightly decreased diffuse peripheral predominant juxtapleural reticulation, subtle groundglass opacities, and architectural distortion. Stable diffuse traction bronchiectasis and mild chronic wall thickening. No honeycombing, cyst, focal airspace consolidation, or pulmonary edema. Pleura: No effusion or pneumothorax. Heart and mediastinum: A 1 cm mildly heterogeneous iso to hypodense nodule within the right lobe of the thyroid. Trace pericardial fluid. Abdomen: Limited nonenhanced views of the upper abdomen. Lymph nodes: No pathologically enlarged lymph node. Vessels: Minimal scattered atherosclerotic vascular calcifications, including the coronary arteries. Bones: Diffusely decreased mineralization of the osseous structures limits bone detail. Stable thoracic kyphosis and multilevel degenerative changes. No new anterior wedge compression deformity Soft tissues: Otherwise, unremarkable. IMPRESSION: 1. Diffuse interstitial lung disease with slightly decreased juxtapleural ground glass opacities superimposed upon stable chronic changes. 2. Stable bronchiectasis and findings compatible with mild nonspecific bronchitis. 3. A 1 cm nodule within the right lobe of the thyroid, recommend correlation with thyroid ultrasound. 4. Minimal coronary atherosclerosis. 5. No consolidative pneumonia or pulmonary edema. Signed by: Dr. Gabino Tracey D.O., M.M.M. on 05/15/2018 4:08 PM
== END ==
LOC: CT 12:46
PROVIDERS: ATTEND Internal Medicine Pulmonary Disease
DX: R05 Cough (principal); R06.02 Shortness of breath
CPT/HCPCS: 71250

== ENCOUNTER 2019-04-03 14:22 | Emergency (ER) | payer MEDICARE ==
[~2019-04-03] VITALS: Ht 154.9 cm; Wt 59.0 kg
[2019-04-03] MEDS ORDERED: ONDANSETRON HCL INJ 2MG/ML 2ML 2 MG/ML VIAL IV STA (15:31)
[2019-04-03] MEDS ORDERED: KETOROLAC TROMETHAMINE 30 MG/ML VIAL IV STA (15:31)
[2019-04-03] MEDS ORDERED: CEFTRIAXONE SOD 1 GM/NS 50 ML 50 ML IV STA (15:31)
[2019-04-03] MEDS ORDERED: SODIUM CHLORIDE 0.9% 1000ML 1,000 ML IV STA (15:31)
--- NOTE | 2019-04-03 15:45 | NUR ---
BLOOD SENT TO LAB
[2019-04-03 15:55] LABS: BASOPHILS % 0.6 % (0.0-1.0); EOSINOPHILS # (AUTO) 0.1 (0.0-0.4); EOSINOPHILS % 1.4 % (0.0-6.0); HEMOGLOBIN 15.7 g/dL (12.0-16.0); LYMPHOCYTES # (AUTO) 1.8 (1.0-3.2); LYMPHOCYTES % 35.3 % (18.0-39.1); MEAN CORPUSCULAR HEMOGLOBIN 33.2 pg (28-32); MEAN CORPUSCULAR HGB CONC 32.7 g/dL (31-35); MEAN CORPUSCULAR VOLUME 101.5 fL (81-99); MONOCYTES # (AUTO) 0.6 (0.2-0.8); NEUTROPHILS # (AUTO) 2.6 (2.1-6.9); NEUTROPHILS % 51.3 % (38.7-80.0); PLATELET COUNT 219 x10e3/uL (140-360); RED BLOOD COUNT 4.73 x10e6/uL (3.6-5.1); RED CELL DISTRIBUTION WIDTH 12.5 % (11.7-14.4)
[2019-04-03 16:09] LABS: ALANINE AMINOTRANSFERASE 15 IU/L (0-55); ALBUMIN 4.5 g/dL (3.5-5.0); ALBUMIN/GLOBULIN RATIO 1.5 (0.8-2.0); ALKALINE PHOSPHATASE 107 IU/L (40-150); ANION GAP 17.2 mmol/L (8-16); BLOOD UREA NITROGEN 15 mg/dL (7-26); BUN/CREATININE RATIO 19 (6-25); CALCIUM 10.1 mg/dL (8.4-10.2); CARBON DIOXIDE 22 mmol/L (22-29); CHLORIDE 104 mmol/L (98-107); CREATININE, SERUM 0.79 mg/dL (0.57-1.11); EST GLOMERULAR FILTRATION RATE > 60 ML/MIN (60-); GLUCOSE 105 mg/dL (74-118); POTASSIUM 4.2 mmol/L (3.5-5.1); SODIUM 139 mmol/L (136-145)
[2019-04-03 16:23] LABS: CLARITY,URINE CLEAR (CLEAR); COLOR,URINE YELLOW (YELLOW); LEUKOCYTE ESTERASE ,URINE SMALL (NEGATIVE); NITRITE,URINE NEGATIVE (NEGATIVE); PROTEIN,URINE DIPSTICK NEGATIVE (NEGATIVE)
[2019-04-03 16:24] LABS: BILIRUBIN,URINE NEGATIVE (NEGATIVE); KETONES,URINE NEGATIVE (NEGATIVE); URINE UROBILINOGEN 0.2 mg/dL (0.2 - 1)
[2019-04-03 16:34] LABS: BACTERIA,URINE RARE /HPF; EPITHELIAL CELLS,URINE FEW /LPF
--- NOTE | 2019-04-03 17:02 | Diagnostic Imaging Report ---
Exam: CT abdomen and pelvis Clinical history: Left flank pain Technique: Helical images of the abdomen and pelvis were obtained without IV contrast administration DOSE REDUCTION: The exams was performed according to the departmental dose-optimization program which includes automated exposure control, adjustment of the mA and/or kV according to patient size and/or use of iterative reconstruction technique. Findings: The lung bases are clear. There is no evidence of pleural effusion. The cardiac size is within normal limits. The liver, spleen, pancreas, adrenal glands, and kidneys are unremarkable. The gallbladder has been removed. The small and large bowels are normal in caliber without evidence of obstruction. The appendix is visualized and normal in caliber. The bladder and uterus are unremarkable. The ovaries are not visualized. There is no evidence of lymphadenopathy or free fluid. Aorta and IVC are normal in caliber. Moderate wedge deformity is noted in the L1 vertebral body most consistent with combination of compression fracture and possible Schmorl's node. Impression: 1. No radiographic evidence of radiopaque stones in bilateral renal collecting systems. 2. L1 deformity which may represent compression fracture, age indeterminant. 3. Status post cholecystectomy. Signed by: Dr. Chun Padilla MD on 04/03/2019 4:59 PM
== END 2019-04-03 19:05 | disposition home or self-care (01) ==
LOC: ER 14:22
DX: R30.0 Dysuria (principal); M54.5 Low back pain; E78.5 Hyperlipidemia, unspecified; F41.9 Anxiety disorder, unspecified; G40.909 Epilepsy, unspecified, not intractable, without status epilepticus
CPT/HCPCS: 36415; 74176; 80053; 81001; 84484; 85025; 87086; 93005; 99283

== ENCOUNTER 2022-03-22 18:15 | Emergency (ER) | payer MEDICARE ==
[~2022-03-22] VITALS: Ht 154.9 cm; Wt 59.0 kg
[2022-03-22] MEDS ORDERED: MECLIZINE HCL 12.5 MG TAB PO ONE (19:15)
[2022-03-22 19:23] LABS: BASOPHILS # (AUTO) 0.1 (0.0-0.1); EOSINOPHILS # (AUTO) 0.1 (0.0-0.4); HEMATOCRIT 52.4 % (34.2-44.1); HEMOGLOBIN 16.3 g/dL (12.0-16.0); LYMPHOCYTES # (AUTO) 1.5 (1.0-3.2); LYMPHOCYTES % 25.8 % (18.0-39.1); MEAN CORPUSCULAR HGB CONC 31.1 g/dL (31-35); MEAN CORPUSCULAR VOLUME 106.1 fL (81-99); MONOCYTES # (AUTO) 0.6 (0.2-0.8); MONOCYTES % 9.6 % (4.4-11.3); NEUTROPHILS # (AUTO) 3.6 (2.1-6.9); NEUTROPHILS % 62.1 % (38.7-80.0); PLATELET COUNT 223 x10e3/uL (140-360); RED BLOOD COUNT 4.94 x10e6/uL (3.6-5.1); RED CELL DISTRIBUTION WIDTH 11.9 % (11.7-14.4)
[2022-03-22] MEDS ORDERED: MECLIZINE HCL 12.5 MG TAB ONE (19:30)
[2022-03-22 19:31] LABS: INR 0.88; PROTHROMBIN TIME 12.1 seconds (11.9-14.5)
[2022-03-22 19:41] LABS: ALANINE AMINOTRANSFERASE 29 IU/L (0-55); ALBUMIN 4.2 g/dL (3.5-5.0); ALBUMIN/GLOBULIN RATIO 1.2 (0.8-2.0); ALKALINE PHOSPHATASE 99 IU/L (40-150); ANION GAP 14.2 mmol/L (8-16); BLOOD UREA NITROGEN 12 mg/dL (7-26); BUN/CREATININE RATIO 15 (6-25); CARBON DIOXIDE 22 mmol/L (22-29); CHLORIDE 110 mmol/L (98-107); CREATININE, SERUM 0.81 mg/dL (0.57-1.11); GLUCOSE 107 mg/dL (74-118); POTASSIUM 4.2 mmol/L (3.5-5.1); SODIUM 142 mmol/L (136-145)
[2022-03-22] MEDS ORDERED: MECLIZINE HCL12.5 MG PO (20:18)
== END 2022-03-22 20:57 | disposition home or self-care (01) ==
LOC: ER 18:21
DX: R42 Dizziness and giddiness (principal); E78.5 Hyperlipidemia, unspecified; G40.909 Epilepsy, unspecified, not intractable, without status epilepticus; Z20.822 Contact with and (suspected) exposure to COVID-19
CPT/HCPCS: 0223U; 36415; 70450; 71045; 80053; 84484; 85025; 85610; 85730; 93005; 99284; J8597

== ENCOUNTER 2023-09-17 15:16 | Inpatient (IN) | payer MEDICARE ==
[~2023-09-17] VITALS: Ht 157.5 cm; Wt 61.2 kg
[~2023-09-17 15:16] MED LIST changes: +MECLIZINE HCL12.5 MG PO; +ULTRAM 50MG50 MG PO
[2023-09-17] MEDS: ACETAMINOPHEN 1000 MG/100 ML IV STA (16:20)
[2023-09-17] MEDS: SODIUM CHLORIDE 0.9% 1000ML 1,000 ML IV SCH ×2 (16:20→18:23)
[2023-09-17 16:27] LABS: BASOPHILS % 0.3 % (0.0-1.0); EOSINOPHILS % 0.2 % (0.0-6.0); HEMATOCRIT 43.6 % (34.2-44.1); HEMOGLOBIN 14.4 g/dL (12.0-16.0); LYMPHOCYTES # (AUTO) 0.2 (1.0-3.2); MEAN CORPUSCULAR HEMOGLOBIN 33.3 pg (28-32); MEAN CORPUSCULAR VOLUME 100.9 fL (81-99); MONOCYTES % 0.6 % (4.4-11.3); NEUTROPHILS # (AUTO) 6.1 (2.1-6.9); NEUTROPHILS % 95.1 % (38.7-80.0); PLATELET COUNT 123 x10e3/uL (140-360); RED BLOOD COUNT 4.32 x10e6/uL (3.6-5.1); RED CELL DISTRIBUTION WIDTH 13.2 % (11.7-14.4); WHITE BLOOD COUNT 6.36 x10e3/uL (4.8-10.8)
[2023-09-17 16:40] LABS: ALBUMIN 3.5 g/dL (3.5-5.0); BILIRUBIN,TOTAL 1.4 mg/dL (0.2-1.2); CREATININE, SERUM 1.36 mg/dL (0.57-1.11); POTASSIUM 3.7 mmol/L (3.5-5.1); TOTAL PROTEIN 6.9 g/dL (6.5-8.1)
[2023-09-17 16:46] LABS: TROPONIN I 0.067 ng/mL (0-0.300)
[2023-09-17 17:15] LABS: ANION GAP 18.7 mmol/L (8-16)
[2023-09-17 17:16] LABS: CLARITY,URINE CLEAR (CLEAR); COLOR,URINE ORANGE (YELLOW); LEUKOCYTE ESTERASE ,URINE LARGE (NEGATIVE); PH,URINE 5 (5 - 7)
[2023-09-17 17:17] LABS: BILIRUBIN,URINE SMALL (NEGATIVE); GLUCOSE, URINE 1+ (NEGATIVE); KETONES,URINE TRACE (NEGATIVE); NITRITE,URINE POSITIVE (NEGATIVE); PROTEIN,URINE DIPSTICK 2+ (NEGATIVE)
[2023-09-17] MEDS: LACTATED RINGER'S 1,000 ML INJ ONE (17:18)
[2023-09-17 17:20] LABS: RBC,URINE 0-5 /HPF (0-5); WBC,URINE (MAN) 21-50 /HPF (0-5)
[2023-09-17 17:21] LABS: BACTERIA,URINE MANY /HPF; EPITHELIAL CELLS,URINE FEW /LPF; TRANSITIONAL EPI CELLS,URINE MODERATE
[2023-09-17 19:30] VITALS: PULSE 87; RESP 18; O2SAT 97
[2023-09-17] MEDS: MEROPENEM 1 GM in SODIUM CHLORIDE 0.9% 100 ML IV ONE (20:22)
[2023-09-17] MEDS: SODIUM CHLORIDE 0.9% 500ML 500 ML IV ONE (20:23)
[2023-09-17] MEDS ORDERED: MAGNESIUM/ALUMINUM/SIMETHICONE 30 ML UDC PO PRN (22:15)
[2023-09-17] MEDS ORDERED: TRAMADOL HCL 50 MG TAB PO PRN (22:15)
[2023-09-17] MEDS ORDERED: POLYETHYLENE GLYCOL 3350 17 GM PACK PO PRN (22:15)
[2023-09-17] MEDS ORDERED: HYDRALAZINE HCL 20 MG/ML VIAL IV PRN (22:15)
[2023-09-17] MEDS ORDERED: ALBUTEROL SULF 0.083% NEB SOLN 3 ML NEB NEB PRN (22:15)
[2023-09-17] MEDS ORDERED: MELATONIN 3 MG TAB PO PRN (22:15)
[2023-09-17] MEDS ORDERED: GUAIFENESIN/DEXTROMETHORPHAN LIQD 5 ML UDC PO PRN (22:15)
[2023-09-17] MEDS ORDERED: ONDANSETRON HCL INJ 2MG/ML 2ML 2 MG/ML VIAL IV PRN (22:15)
[2023-09-17] MEDS ORDERED: LACTATED RINGER'S 1,000 ML ONE (22:59)
[2023-09-17] MEDS: ENOXAPARIN SOD INJ 40 MG/0.4 ML SYR SC STA (23:04)
[2023-09-17] MEDS: LACTATED RINGER'S 500 ML IV ONE (23:04)
[2023-09-18] VITALS (15 sets, daily range): BP systolic 131–163; BP diastolic 69–83; PULSE 84–101; RESP 16–26; TEMP 98.3–98.8; O2SAT 97–100
[2023-09-18] MEDS: Vancomycin IV 1 GM in SODIUM CHLORIDE 0.9% 250ML 250 ML IV ONE (02:18)
[2023-09-18] MEDS: NOREPINEPHRINE 8 MG/D5W 250 ML 250 ML IV SCH (04:11)
[2023-09-18 06:09] LABS: BASOPHILS % 0.2 % (0.0-1.0); EOSINOPHILS % 0.3 % (0.0-6.0); HEMATOCRIT 36.1 % (34.2-44.1); HEMOGLOBIN 11.7 g/dL (12.0-16.0); LYMPHOCYTES # (AUTO) 0.8 (1.0-3.2); LYMPHOCYTES % 6.3 % (18.0-39.1); MEAN CORPUSCULAR HEMOGLOBIN 33.1 pg (28-32); MEAN CORPUSCULAR HGB CONC 32.4 g/dL (31-35); MONOCYTES # (AUTO) 0.7 (0.2-0.8); MONOCYTES % 5.9 % (4.4-11.3); NEUTROPHILS # (AUTO) 10.2 (2.1-6.9); NEUTROPHILS % 85.1 % (38.7-80.0); PLATELET COUNT 104 x10e3/uL (140-360); RED BLOOD COUNT 3.54 x10e6/uL (3.6-5.1); RED CELL DISTRIBUTION WIDTH 13.4 % (11.7-14.4); WHITE BLOOD COUNT 11.95 x10e3/uL (4.8-10.8)
[2023-09-18 06:24] LABS: ALBUMIN 2.6 g/dL (3.5-5.0); ANION GAP 14.4 mmol/L (8-16); BILIRUBIN,TOTAL 0.7 mg/dL (0.2-1.2); CALCIUM 7.8 mg/dL (8.4-10.2); CREATININE, SERUM 0.73 mg/dL (0.57-1.11); MAGNESIUM 1.7 MG/DL (1.3-2.1); TOTAL PROTEIN 5.2 g/dL (6.5-8.1)
[2023-09-18 06:27] LABS: POTASSIUM 3.4 mmol/L (3.5-5.1)
[2023-09-18 06:59] LABS: THYROID STIMULATING HORMONE 0.625 uIU/mL (0.350-4.940)
[2023-09-18] MEDS: MULTIVITAMINS/MINERALS TAB PO SCH (08:41)
[2023-09-18] MEDS: DESVENLAFAXINE SUCCINATE 50 MG TAB.SR.24H PO SCH (08:41)
[2023-09-18] MEDS: LEVETIRACETAM 500 MG TAB PO SCH (08:41)
[2023-09-18] MEDS: ENOXAPARIN SOD INJ 40 MG/0.4 ML SYR SC SCH (16:56)
[2023-09-18] MEDS: LACTATED RINGER'S 1,000 ML INJ ONE (16:57)
[2023-09-18] MEDS: ACETAMINOPHEN 325 MG TAB PO PRN (21:24)
[2023-09-18] MEDS: LORAZEPAM 0.5 MG TAB PO PRN (22:26)
[2023-09-19] VITALS (44 sets, daily range): BP systolic 105–145; BP diastolic 49–83; PULSE 73–96; RESP 10–29; TEMP 97.6–98.6; O2SAT 97–100
[2023-09-19 06:46] LABS: BASOPHILS # (AUTO) 0.1 (0.0-0.1); BASOPHILS % 0.6 % (0.0-1.0); EOSINOPHILS # (AUTO) 0.2 (0.0-0.4); EOSINOPHILS % 2.1 % (0.0-6.0); HEMOGLOBIN 11.5 g/dL (12.0-16.0); LYMPHOCYTES # (AUTO) 0.9 (1.0-3.2); LYMPHOCYTES % 10.3 % (18.0-39.1); MEAN CORPUSCULAR HEMOGLOBIN 32.8 pg (28-32); MEAN CORPUSCULAR HGB CONC 31.9 g/dL (31-35); MEAN CORPUSCULAR VOLUME 102.6 fL (81-99); MONOCYTES # (AUTO) 0.6 (0.2-0.8); MONOCYTES % 6.8 % (4.4-11.3); NEUTROPHILS # (AUTO) 6.9 (2.1-6.9); NEUTROPHILS % 78.5 % (38.7-80.0); PLATELET COUNT 96 x10e3/uL (140-360); RED BLOOD COUNT 3.51 x10e6/uL (3.6-5.1); RED CELL DISTRIBUTION WIDTH 13.4 % (11.7-14.4); WHITE BLOOD COUNT 8.78 x10e3/uL (4.8-10.8)
[2023-09-19 07:23] LABS: ALBUMIN 2.4 g/dL (3.5-5.0); ALBUMIN/GLOBULIN RATIO 0.9 (0.8-2.0); ANION GAP 10.3 mmol/L (8-16); BILIRUBIN,TOTAL 0.4 mg/dL (0.2-1.2); CALCIUM 8.5 mg/dL (8.4-10.2); CREATININE, SERUM 0.6 mg/dL (0.57-1.11); TOTAL PROTEIN 5.2 g/dL (6.5-8.1)
[2023-09-19 07:25] LABS: POTASSIUM 3.3 mmol/L (3.5-5.1)
[2023-09-19] MEDS: POTASSIUM CHLORIDE 10MEQ EA PO ONE (08:13)
[2023-09-19] MEDS: CEFTRIAXONE 2 GM in SODIUM CHLORIDE 0.9% 100 ML IV SCH (15:55)
[2023-09-19] MEDS: FELBAMATE 600 MG PO SCH (22:00)
[2023-09-20] VITALS (10 sets, daily range): BP systolic 115–141; BP diastolic 57–76; PULSE 70–92; RESP 13–24; TEMP 97.7–98.3; O2SAT 97–100
[2023-09-20 06:30] LABS: BASOPHILS # (AUTO) 0.1 (0.0-0.1); BASOPHILS % 0.9 % (0.0-1.0); EOSINOPHILS # (AUTO) 0.2 (0.0-0.4); EOSINOPHILS % 2.8 % (0.0-6.0); HEMATOCRIT 37.9 % (34.2-44.1); HEMOGLOBIN 12.4 g/dL (12.0-16.0); LYMPHOCYTES # (AUTO) 1.4 (1.0-3.2); MEAN CORPUSCULAR HEMOGLOBIN 32.6 pg (28-32); MEAN CORPUSCULAR HGB CONC 32.7 g/dL (31-35); MEAN CORPUSCULAR VOLUME 99.7 fL (81-99); MONOCYTES # (AUTO) 0.6 (0.2-0.8); MONOCYTES % 11.7 % (4.4-11.3); NEUTROPHILS # (AUTO) 3.1 (2.1-6.9); PLATELET COUNT 117 x10e3/uL (140-360); RED CELL DISTRIBUTION WIDTH 13.2 % (11.7-14.4); WHITE BLOOD COUNT 5.31 x10e3/uL (4.8-10.8)
[2023-09-20 06:46] LABS: ANION GAP 13.1 mmol/L (8-16); CREATININE, SERUM 0.66 mg/dL (0.57-1.11); POTASSIUM 4.1 mmol/L (3.5-5.1)
[2023-09-21] VITALS (7 sets, daily range): BP systolic 124–137; BP diastolic 59–69; PULSE 77–88; RESP 16–20; TEMP 98.2–99; O2SAT 98–100
[2023-09-21] MEDS ORDERED: KEFLEX125 MG/5 M PO (20:06)
== END 2023-09-21 21:20 | disposition home or self-care (01) | DRG 871 ==
LOC: ER 15:19 → ERHOLD 17:34 → OBSVTOIN 09-18 15:38 → ICU 09-18 20:49 → MED/SURG3 09-20 11:54
PROVIDERS: ADMIT Internal Medicine; ATTEND Internal Medicine
PROC: 3E0333Z Introduction of Anti-inflammatory into Peripheral Vein, Percutaneous Approach (ICD-10-PCS; principal; 2023-09-18)
PROC: 02HV33Z Insertion of Infusion Device into Superior Vena Cava, Percutaneous Approach (ICD-10-PCS; 2023-09-18)
PROC: 3E033XZ Introduction of Vasopressor into Peripheral Vein, Percutaneous Approach (ICD-10-PCS; 2023-09-18)
DX: A41.51 Sepsis due to Escherichia coli [E. coli] (principal); K72.00 Acute and subacute hepatic failure without coma; R65.21 Severe sepsis with septic shock; N17.9 Acute kidney failure, unspecified; E87.20 Acidosis, unspecified; N39.0 Urinary tract infection, site not specified; E78.5 Hyperlipidemia, unspecified; G62.9 Polyneuropathy, unspecified; R74.02 Elevation of levels of lactic acid dehydrogenase [LDH]; K59.00 Constipation, unspecified; N16 Renal tubulo-interstitial disorders in diseases classified elsewhere; R39.15 Urgency of urination; R35.0 Frequency of micturition; R53.81 Other malaise; M81.0 Age-related osteoporosis without current pathological fracture; M19.90 Unspecified osteoarthritis, unspecified site; F41.9 Anxiety disorder, unspecified; Z11.52 Encounter for screening for COVID-19; G40.909 Epilepsy, unspecified, not intractable, without status epilepticus; Z87.440 Personal history of urinary (tract) infections; Z88.1 Allergy status to other antibiotic agents; Z91.041 Radiographic dye allergy status; Z88.2 Allergy status to sulfonamides; Z88.3 Allergy status to other anti-infective agents; Z88.8 Allergy status to other drugs, medicaments and biological substances; Z87.891 Personal history of nicotine dependence
CPT/HCPCS: 36415; 36555; 71045; 74176; 76700; 80048; 80053; 81001; 82550; 83605; 83690; 83735; 84443; 84484; 85025; 87040; 87071; 87086; 87186; 87205; 93005; 94799; 99252; 99284; G0378; J0696; J1650; J2185; J7030; J7040; J7050; J7120; U0002